=== PATIENT | female | born 1975 | race Caucasian/White ===

== ENCOUNTER 2019-09-09 10:50 | Outpatient (CLI) | payer MEDICARE, MEDICAID, SELFPAY ==
--- NOTE | ~2019-09-09 | MMUS_ITS ---
CORRECTED REPORT SEE ITALIC/BOLD TEXT BELOW FOR CORRECTED EXAM. 09/10/19 sef EXAMINATION: MM screen LT diag RT w bobby, US breast RT limited HISTORY: Probable right axillary abnormality TECHNIQUE: Additional 3-D tomosynthesis images of the breasts were performed and synthetic 2-D images were generated. CAD analysis was submitted and interpreted. High resolution right breast ultrasound was performed. COMPARISON: Comparison to multiple prior studies sequentially, with oldest reviewed study dated 04/30/2014. FINDINGS: MAMMOGRAPHIC FINDINGS: Breast composed of scattered areas of fibroglandular density. There is clustered normal-appearing right axillary lymph nodes in the area of palpable concern. No suspicious masses, calcifications or architectural distortion in either breast to suggest malignancy. ULTRASOUND: Limited right breast ultrasound: Normal heterogeneous echotexture without focal solid or cystic mass. IMPRESSION: 1. No mammographic or sonographic evidence for malignancy. 2. Routine yearly screening mammogram and regular clinical breast examination are recommended. BI-RADS Category 2: Benign finding(s). Reviewed, dictated and finalized at location [facility]. MTDD IMPRESSION: 1. No mammographic or sonographic evidence for malignancy. 2. Routine yearly screening mammogram and regular clinical breast examination a re recommended. BI-RADS Category 2: Benign finding(s).
== END 2019-09-09 10:51 | disposition home or self-care (01) ==
PROVIDERS: Visit Provider Obstetrics & Gynecology
DX: N63.11 Unspecified lump in the right breast, upper outer quadrant (principal); Z12.31 Encounter for screening mammogram for malignant neoplasm of breast
CPT/HCPCS: 76642; 77061; 77063; 77065; 77067; G0279

== ENCOUNTER 2019-09-29 07:18 | Outpatient (CLI) | payer MEDICARE, MEDICAID, SELFPAY | END 2019-09-29 07:19 | disposition home or self-care (01) | LOC: ANHAUDIO 07:28 | DX: H90.3 Sensorineural hearing loss, bilateral (principal) | CPT/HCPCS: 92557; 92567 ==

== ENCOUNTER 2020-01-19 14:44 | Outpatient (RCR) | payer MEDICAID, SELFPAY | END 2020-01-19 23:59 | disposition home or self-care (01) | LOC: ANHAUDIO 14:44 | DX: Z46.1 Encounter for fitting and adjustment of hearing aid (principal) | CPT/HCPCS: 92593 ==

== ENCOUNTER 2020-02-17 13:45 | Emergency (ER) | payer MEDICARE, MEDICAID, SELFPAY ==
--- NOTE | ~2020-02-17 | XR_ITS ---
EXAMINATION: XR chest 1V portable DATE: 02/17/2020 15:15 INDICATION: Cough. Pelvic pain. TECHNIQUE: A single frontal view of the chest was obtained. COMPARISON: Chest 2 views 08/10/2015 FINDINGS: There are mild airspace opacities in the lower lung zones. There is blunting of left latera l costophrenic angle. No pneumothorax. The heart size is normal. IMPRESSION: 1. Mild airspace opacities in the lower lung zones, consistent with atelectasis versus pneumonia. 2. Blunting of left lateral costophrenic angle, consistent with a small pleural effusion versus a pro minent fat pad. Reviewed, dictated and finalized at location [facility]. CH PATHOLOGY ASSISTANT IMPRESSION: 1. Mild airspace opacities in the lower lung zones, consistent with atelectasis versus pneumonia. 2. Blunting of left lateral costophrenic angle, consistent with a small pleural effusion versus a prominent fat pad.
[2020-02-17 14:01] VITALS: BP 138/95; PULSE 83; RESP 16; TEMP 36.3; O2SAT 99
[2020-02-17 15:36] LABS: Add Urine Microscopic? NO; Appearance Urine Clear (Clear); Bilirubin Urine Negative (Negative); Blood Urine Negative (Negative); Color Urine Colorless (Yellow); Glucose Urine UA Negative (Negative); Ketones Urine Negative (Negative); Leukocyte Esterase Ur Negative LEU/UL (Negative); Nitrate Urine Negative (Negative); Protein Urine Negative (Negative); Specific Grav Ur 1.005 (1.001-1.035); Urobilinogen Urine Negative mg/dL (<2.0)
[2020-02-17] MEDS: ALPRAZolam (*CRX) 0.25 MG TABLET 0.5 MG PO (17:04)
[2020-02-17] MEDS: FLUCONAZOLE 150 MG TABLET PO (17:04)
[2020-02-17 17:28] VITALS: BP 140/88; PULSE 80; RESP 16; O2SAT 98
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
[2020-02-17 23:33] LABS: SARS-CoV-2 RNA PCR Negative
== END 2020-02-17 18:32 | disposition home or self-care (01) ==
PROVIDERS: Physician Assistant; Emergency Provider Emergency Medicine
DX: N94.89 Other specified conditions associated with female genital organs and menstrual cycle (principal); Z20.828 Contact with and (suspected) exposure to other viral communicable diseases; F43.10 Post-traumatic stress disorder, unspecified; Z91.410 Personal history of adult physical and sexual abuse; E03.9 Hypothyroidism, unspecified; R10.2 Pelvic and perineal pain
CPT/HCPCS: 71045; 81003; 87070; 87081; 87635; 87804; 87880; 99284; A9270; C9803; U0003

== ENCOUNTER 2020-03-01 12:02 | Outpatient (CLI) | payer MEDICARE, MEDICAID, SELFPAY ==
--- NOTE | ~2020-03-01 | XR_ITS ---
XR sacrum coccyx min 2V 03/01/2020 13:06 Indication: Overactive bladder Procedure: 3 views sacrum/coccyx Comparison: No prior studies for comparison. Findings: There is a stimulator lead extending into the pelvis via left transsacral approach. There a re radiopaque rings in the pelvis, likely tubal ligation rings. Sacral foramen are symmetric. No acut e bone or joint abnormality. Impression: 1: Neural stimulator lead extends into the pelvis via left transsacral approach. Reviewed, dictated and finalized at location [facility]. TICS DESIGN ENGINEER Impression: 1: Neural stimulator lead extends into the pelvis via left transsacral approach .
== END 2020-03-01 12:03 | disposition home or self-care (01) ==
PROVIDERS: Visit Provider Urology
DX: N32.81 Overactive bladder (principal); Z96.82 Presence of neurostimulator
CPT/HCPCS: 72220

== ENCOUNTER 2020-03-25 09:42 | Emergency (ER) | payer MEDICARE, MEDICAID, SELFPAY ==
[2020-03-25 09:52] VITALS: BP 179/114; PULSE 68; RESP 16; TEMP 36.7; O2SAT 100
--- NOTE | 2020-03-25 11:19 | ED.ABDPAIN ---
HPI - Abdominal Pain General Chief Complaint: Abdominal Pain Stated Complaint: gastro problems Time Seen by Provider: 03/25/20 09:49 Source: patient Mode of arrival: ambulatory Limitations: no limitations History of Present Illness HPI narrative: Patient is a 44-year-old female who presents to emergency department for evaluation of multiple complaints including chronic rash is also been having chronic GI issues which have been persistent patient has difficulty getting into primary care because she has been having cough for weeks as well as noting intermittent diarrhea which is prevented the staff from allowing her to come to the office for a visit. Patient notes mild aching pain of the abdomen with intermittent diarrhea. Patient on arrival also noting that her cough is chronic in nature is not coughing anything up. Patient denies any vomiting rectal bleeding melena. Patient notes rash of the groin and breast for which she has been taking nystatin with some improvement but it waxes and wanes sometimes it gets better and then improves. Patient has had trouble getting the dermatology for this and has been largely managed by primary care for this Related Data Home Medications Medication Instructions Recorded Confirmed N-Acetylcysteine 1,200 mg PO DAILY 01/30/19 04/04/19 acetaminophen [Tylenol Extra 500 mg PO Q4H PRN 01/30/19 04/04/19 Strength] baclofen 10 mg PO Q12H 01/30/19 04/04/19 buspirone 10 mg PO TID 01/30/19 04/04/19 clonazepam 5 mg PO BID 01/30/19 04/04/19 hydroxyzine pamoate [Vistaril] 50 mg PO TID 01/30/19 04/04/19 hydroxyzine pamoate [Vistaril] 100 mg PO HS 01/30/19 04/04/19 ibuprofen 600 mg PO Q6H PRN 01/30/19 04/04/19 lamotrigine [Lamictal] 100 mg PO HS 01/30/19 04/04/19 levomefolate-algal oil [Deplin 1 cap PO DAILY 01/30/19 04/04/19 (algal oil)] lithium carbonate 450 mg PO Q12H 01/30/19 04/04/19 norethindrone ac-eth estradiol 1 tablet PO HS 01/30/19 04/04/19 olanzapine 5 mg PO TID 01/30/19 04/04/19 prazosin 2 mg PO DAILY 01/30/19 04/04/19 pregabalin [Lyrica] 150 mg PO Q12H 01/30/19 04/04/19 ropinirole [Requip] 0.5 mg PO Q12H 01/30/19 04/04/19 fluvoxamine 25 mg PO BID 03/18/19 04/04/19 melatonin 3 mg PO HS 03/18/19 04/04/19 modafinil [Provigil] 100 mg PO QA 03/18/19 04/04/19 omeprazole 40 mg PO DAILY 03/18/19 04/04/19 prazosin 5 mg PO HS 03/18/19 04/04/19 propranolol 10 mg PO TID 03/18/19 04/04/19 quetiapine [Seroquel] 300 mg PO HS 03/18/19 04/04/19 Allergies Allergy/AdvReac Type Severity Reaction Status Date / Time albuterol Allergy Mild Swelling Verified 01/26/20 10:25 levofloxacin Allergy Mild RASH Verified 01/26/20 10:25 adhesive Allergy Unknown Rash Verified 01/26/20 10:25 cetirizine Allergy Unknown Rash Verified 01/26/20 10:25 gabapentin Allergy Unknown Swelling Verified 01/26/20 10:25 lactose Allergy Unknown Gastrointestinal Verified 01/26/20 10:25 Upset latex Allergy Unknown ITCHING-POWDER Verified 01/26/20 10:25 IN GLOVES prednisone AdvReac Unknown mood Verified 01/26/20 10:25 reaction Sulfa (Sulfonamide AdvReac Unknown CAUSED Verified 01/26/20 10:25 Antibiotics) INCREASED PAIN Review of Systems Review of Systems: All systems reviewed & are unremarkable except as noted in HPI and below PMFSH Past Medical History Medical History COPD (chronic obstructive pulmonary disease) GERD (gastroesophageal reflux disease) Hypothyroid Migraine Morbid obesity Family History Family History Other Diabetes mellitus Family history of arthritis Family history of cardiovascular disease Family history of coronary artery disease Family history of lung cancer Social History Social History Smoking status: Former smoker Smoking end date: 01/01/15 Alcohol intake: never Exam Narrative: Exam Narrative: GE
== END 2020-03-25 11:38 | disposition home or self-care (01) ==
PROVIDERS: Emergency Provider Emergency Medicine
DX: R21 Rash and other nonspecific skin eruption (principal); R10.9 Unspecified abdominal pain; J44.9 Chronic obstructive pulmonary disease, unspecified; K21.9 Gastro-esophageal reflux disease without esophagitis; E03.9 Hypothyroidism, unspecified; E66.01 Morbid (severe) obesity due to excess calories; Z68.42 Body mass index [BMI] 45.0-49.9, adult; Z87.891 Personal history of nicotine dependence
CPT/HCPCS: 99283

== ENCOUNTER 2020-04-04 11:33 | Emergency (ER) | payer MEDICARE, MEDICAID, SELFPAY ==
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
[2020-04-04 11:52] VITALS: BP 154/100; PULSE 71; RESP 18; TEMP 36.6; O2SAT 100
== END 2020-04-04 12:15 | disposition home or self-care (01) ==
PROVIDERS: Emergency Provider Nurse Practitioner
DX: R39.15 Urgency of urination (principal); R30.0 Dysuria; R10.9 Unspecified abdominal pain; R31.9 Hematuria, unspecified; E03.9 Hypothyroidism, unspecified
CPT/HCPCS: 81003; 87077; 87086; 87088; 87186; 99213; G0463

== ENCOUNTER 2020-04-05 15:26 | Emergency (ER) | payer MEDICARE, MEDICAID, SELFPAY ==
--- NOTE | ~2020-04-05 | CT_ITS ---
EXAMINATION: CT abdomen pelvis wo con DATE: 04/05/2020 16:46 INDICATION: Flank pain. Difficulty urinating for 3 days. TECHNIQUE: Computed tomography (CT) of the abdomen and pelvis was performed without intravenous contr ast. Automated exposure control and iterative reconstruction technique were employed. Exam dose: 120 5.51 mGy-cm total exam DLP. COMPARISON: 07/12/2012 CT abdomen with IV contrast material FINDINGS: There is trace pericardial fluid. Heart size is within normal limits. The lung bases are cl ear of consolidation. Status post cholecystectomy. No bile duct or pancreatic duct dilatation. Probable small hepatic dome liver cyst. The liver, spleen, pancreas, and adrenal glands and kidneys a re otherwise unremarkable on this limited noncontrast examination. Normal caliber of the abdominal aorta, with atherosclerotic calcification of the aorta and iliac and right femoral arteries. No intraperitoneal or retroperitoneal or pelvic mass lesion or adenopathy or ascites. No ureteral or other urinary tract calculus or hydroureteronephrosis is detected. There is prominent distention of the urinary bladder. No bladder wall thickening or intraluminal blad adan mass lesion is noted. The uterus and adnexal areas are unremarkable. Small sliding hiatal hernia. Normal appendix. No bowel obstruction, bowel wall thickening, pneumatosi s or intraperitoneal free air. There is an implanted right lower back battery pack with lead extending through left L3-4 sacral neur al foramen. No suspicious osteolytic or osteoblastic lesions. Prominent degenerative disc disease at L1-2. IMPRESSION: No urinary tract calculus or hydroureteronephrosis Small hepatic dome probable cyst Status post cholecystectomy Small sliding hiatal hernia Reviewed, dictated and finalized at [facility]. Reviewed, dictated and finalized at location [facility]. RHANGER AND PAINTER
[2020-04-05 15:36] VITALS: BP 173/87; PULSE 71; RESP 16; TEMP 36.4; O2SAT 100
[2020-04-05 16:02] LABS: Basophils Percent Auto 0.5 % (0.2-1.2); Eosinophils Absolute Auto 0.2 K/mm3 (0-0.3); Eosinophils Percent Auto 2.3 % (0-4.4); Hematocrit 41.4 % (37.0-47.0); Immature Granulocyte Absolute 0.03 K/mm3 (0.00-0.031); Immature Granulocyte Percent A 0.4 % (0-0.5); Lymphocytes Absolute Auto 2.46 K/mm3 (0.9-3.2); Lymphocytes Percent Auto 31.1 % (18.3-44.2); Mean Corpuscular HGB Conc 33.8 g/dl (32-36); Mean Corpuscular Hemoglobin 31.2 pg (26-34); Mean Corpuscular Volume 92.2 fl (80-100); Mean Platelet Volume 10.8 fl (7.4-10.4); Monocytes Absolute Auto 0.8 K/mm3 (0.1-0.6); Monocytes Percent Auto 10.4 % (2.6-8.5); Neutrophils Absolute Auto 4.4 K/mm3 (1.3-6.7); Neutrophils Percent Auto 55.3 % (45.5-73.1); Platelet Count Result 299 k/mm3 (150-375); Red Blood Count 4.49 M/mm3 (4.2-5.4); White Blood Count 7.9 K/mm3 (4.5-10.0)
[2020-04-05 16:20] LABS: Anion Gap 7 mmol/L (8-16); Blood Urea Nitrogen 8 mg/dL (7-17); Calcium 8.5 mg/dL (8.4-10.2); Carbon Dioxide 25 mmol/L (22-30); Chloride 97 mmol/L (98-107); Estimated CRCL calculation 103 ml/min; Estimated Glomerular Filt Rate > 60; Glucose 87 mg/dL (65-105); Potassium 4.4 mmol/L (3.4-5.0); Sodium 129 mmol/L (137-145)
[2020-04-05] MEDS: SODIUM CHLORIDE 0.9% IV 1,000 ML 999 ML IV CONT (16:28)
--- NOTE | 2020-04-05 16:35 | ED.CHESTPAIN ---
HPI - Chest Pain General Chief Complaint: Urogenital-Female Stated Complaint: UTI, LOW BACK PAIN Time Seen by Provider: 04/05/20 15:30 Source: patient Mode of arrival: ambulatory Limitations: no limitations History of Present Illness HPI narrative: Patient is a 44-year-old female who presents with abdominal pain and back pain after straight cathing herself yesterday saw urology today came to emergency department for further evaluation of her discomfort. Patient noted some hematuria after self cathing herself patient has been instructed to do so by urology per patient. Patient denies fever chills nausea vomiting diarrhea or other complaints presents in no distress Related Data Home Medications Medication Instructions Recorded Confirmed N-Acetylcysteine 1,200 mg PO DAILY 01/30/19 04/04/19 acetaminophen [Tylenol Extra 500 mg PO Q4H PRN 01/30/19 04/04/19 Strength] baclofen 10 mg PO Q12H 01/30/19 04/04/19 buspirone 10 mg PO TID 01/30/19 04/04/19 clonazepam 5 mg PO BID 01/30/19 04/04/19 hydroxyzine pamoate [Vistaril] 50 mg PO TID 01/30/19 04/04/19 hydroxyzine pamoate [Vistaril] 100 mg PO HS 01/30/19 04/04/19 ibuprofen 600 mg PO Q6H PRN 01/30/19 04/04/19 lamotrigine [Lamictal] 100 mg PO HS 01/30/19 04/04/19 levomefolate-algal oil [Deplin 1 cap PO DAILY 01/30/19 04/04/19 (algal oil)] lithium carbonate 450 mg PO Q12H 01/30/19 04/04/19 norethindrone ac-eth estradiol 1 tablet PO HS 01/30/19 04/04/19 olanzapine 5 mg PO TID 01/30/19 04/04/19 prazosin 2 mg PO DAILY 01/30/19 04/04/19 pregabalin [Lyrica] 150 mg PO Q12H 01/30/19 04/04/19 ropinirole [Requip] 0.5 mg PO Q12H 01/30/19 04/04/19 fluvoxamine 25 mg PO BID 03/18/19 04/04/19 melatonin 3 mg PO HS 03/18/19 04/04/19 modafinil [Provigil] 100 mg PO QAM 03/18/19 04/04/19 omeprazole 40 mg PO DAILY 03/18/19 04/04/19 prazosin 5 mg PO HS 03/18/19 04/04/19 propranolol 10 mg PO TID 03/18/19 04/04/19 quetiapine [Seroquel] 300 mg PO HS 03/18/19 04/04/19 Allergies Allergy/AdvReac Type Severity Reaction Status Date / Time albuterol Allergy Mild Swelling Verified 04/05/20 15:40 levofloxacin Allergy Mild RASH Verified 04/05/20 15:40 adhesive Allergy Unknown Rash Verified 04/05/20 15:40 cetirizine Allergy Unknown Rash Verified 04/05/20 15:40 gabapentin Allergy Unknown Swelling Verified 04/05/20 15:40 lactose Allergy Unknown Gastrointestinal Verified 04/05/20 15:40 Upset latex Allergy Unknown ITCHING-POWDER Verified 04/05/20 15:40 IN GLOVES prednisone AdvReac Unknown mood Verified 04/05/20 15:40 reaction Sulfa (Sulfonamide AdvReac Unknown CAUSED Verified 04/05/20 15:40 Antibiotics) INCREASED PAIN Review of Systems Review of Systems: All systems reviewed & are unremarkable except as noted in HPI and below PMFSH Past Medical History Medical History COPD (chronic obstructive pulmonary disease) GERD (gastroesophageal reflux disease) Hypothyroid Migraine Morbid obesity Family History Family History Other Diabetes mellitus Family history of arthritis Family history of cardiovascular disease Family history of coronary artery disease Family history of lung cancer Social History Social History Smoking status: Former smoker Smoking end date: 03/12/14 Alcohol intake: never Gender identity (if verbalized by the patient): Female Exam Narrative: Exam Narrative: GENERAL: Well-appearing, obese, and in no acute distress. HEAD: Normocephalic, atraumatic. EYES: PERRLA and EOMI. ENT: Nares clear, no rhinorrhea or epistaxis. Mucous membranes moist. CHEST: Clear to auscultation. No respiratory distress. No wheezes rales or rhonchi HEART: Regular rate and rhythm. No murmur heard. Normal peripheral pulses. ABDOMEN: Soft, generalized tenderness of the abdomen, nondistended EXTREMITIES: Norm
[2020-04-05 16:57] VITALS: BP 168/84; PULSE 88; RESP 18; O2SAT 96
[2020-04-05 17:49] LABS: Add Urine Microscopic? NO; Appearance Urine Clear (Clear); Bilirubin Urine Negative (Negative); Blood Urine Negative (Negative); Color Urine Yellow (Yellow); Glucose Urine UA Negative (Negative); Ketones Urine Negative (Negative); Leukocyte Esterase Ur Negative LEU/UL (Negative); Nitrate Urine Negative (Negative); Protein Urine Negative (Negative); Urobilinogen Urine Negative mg/dL (<2.0)
[2020-04-05 17:50] LABS: Specific Grav Ur 1.003 (1.001-1.035)
[2020-04-05 18:16] VITALS: BP 134/79; PULSE 74; RESP 16; O2SAT 100
== END 2020-04-05 18:17 | disposition home or self-care (01) ==
PROVIDERS: Emergency Medicine Emergency Medical Services; Emergency Provider Emergency Medicine
DX: R10.9 Unspecified abdominal pain (principal); J44.9 Chronic obstructive pulmonary disease, unspecified; K21.9 Gastro-esophageal reflux disease without esophagitis; E03.9 Hypothyroidism, unspecified; E66.01 Morbid (severe) obesity due to excess calories; Z68.41 Body mass index [BMI] 40.0-44.9, adult; Z87.891 Personal history of nicotine dependence; K44.9 Diaphragmatic hernia without obstruction or gangrene
CPT/HCPCS: 36415; 74176; 80048; 81003; 85025; 96374; 96375; 99284; J0131; J0696; J7030

== ENCOUNTER → 2020-04-20 03:42 | Outpatient (CLI) | payer MEDICARE, MEDICAID, SELFPAY ==
[2020-04-21 18:18] LABS: SARS-CoV-2 RNA PCR Negative
== END ==
PROVIDERS: Visit Provider Urology
DX: Z01.812 Encounter for preprocedural laboratory examination (principal); Z20.822 Contact with and (suspected) exposure to COVID-19
CPT/HCPCS: C9803; U0003; U0005

== ENCOUNTER 2020-04-20 10:20 | Outpatient (CLI) | payer MEDICARE, MEDICAID, SELFPAY ==
--- NOTE | 2020-04-20 10:23 | ECG_ITS ---
Measurements Intervals [place] Rate: 62 P: 124 NC: 188 QRS: 44 QRSD: 84 T: 22 QT: 394 QTc: 402 Interpretive Statements SINUS RHYTHM LOW QRS VOLTAGE IN PRECORDIAL LEADS BASELINE ARTIFACT- II, III, AVR, AVF BORDERLINE ECG Electronically Signed On 04-20-2020 10:54:10 [employer]AYER by Jean Paul Arguelles D.O.
== END 2020-04-20 10:21 | disposition home or self-care (01) ==
LOC: ANHSURGERY 10:23
PROVIDERS: Visit Provider Urology
DX: Z01.818 Encounter for other preprocedural examination (principal); Z87.891 Personal history of nicotine dependence
CPT/HCPCS: 93005; C9803; U0003; U0005

== ENCOUNTER 2020-04-23 00:43 | Day surgery (SDC) | payer MEDICARE, MEDICAID, SELFPAY ==
--- NOTE | 2020-04-18 10:00 | PM.IMHP ---
H&P: HPI History of Present Illness Date/Time: 04/18/20 10:00 Chief Complaint: OAB Narrative: Brittney Mercado is a 44 year old female with OAB and displaced sacral lead Review of Systems Review of Systems: All systems reviewed & are unremarkable except as noted in HPI and below PMFSH Past Medical History Medical History COPD (chronic obstructive pulmonary disease) GERD (gastroesophageal reflux disease) Hypothyroid Migraine Morbid obesity Family History Family History Other Diabetes mellitus Family history of arthritis Family history of cardiovascular disease Family history of coronary artery disease Family history of lung cancer Social History Social History Smoking status: Former smoker Smoking end date: 03/12/14 Alcohol intake: never Gender identity (if verbalized by the patient): Female Meds Home Medications and Allergies Home Medications Medication Instructions Recorded Confirmed Type N-Acetylcysteine 1,200 mg PO DAILY 01/30/19 04/04/19 History acetaminophen [Tylenol Extra 500 mg PO Q4H PRN 01/30/19 04/04/19 History Strength] baclofen 10 mg PO Q12H 01/30/19 04/04/19 History buspirone 10 mg PO TID 01/30/19 04/04/19 History clonazepam 5 mg PO BID 01/30/19 04/04/19 History hydroxyzine pamoate [Vistaril] 50 mg PO TID 01/30/19 04/04/19 History hydroxyzine pamoate [Vistaril] 100 mg PO HS 01/30/19 04/04/19 History ibuprofen 600 mg PO Q6H PRN 01/30/19 04/04/19 History lamotrigine [Lamictal] 100 mg PO HS 01/30/19 04/04/19 History levomefolate-algal oil [Deplin 1 cap PO DAILY 01/30/19 04/04/19 History (algal oil)] lithium carbonate 450 mg PO Q12H 01/30/19 04/04/19 History norethindrone ac-eth estradiol 1 tablet PO HS 01/30/19 04/04/19 History olanzapine 5 mg PO TID 01/30/19 04/04/19 History prazosin 2 mg PO DAILY 01/30/19 04/04/19 History pregabalin [Lyrica] 150 mg PO Q12H 01/30/19 04/04/19 History ropinirole [Requip] 0.5 mg PO Q12H 01/30/19 04/04/19 History fluvoxamine 25 mg PO BID 03/18/19 04/04/19 History melatonin 3 mg PO HS 03/18/19 04/04/19 History modafinil [Provigil] 100 mg PO QAM 03/18/19 04/04/19 History omeprazole 40 mg PO DAILY 03/18/19 04/04/19 History prazosin 5 mg PO HS 03/18/19 04/04/19 History propranolol 10 mg PO TID 03/18/19 04/04/19 History quetiapine [Seroquel] 300 mg PO HS 03/18/19 04/04/19 History hydrocodone-acetaminophen [[place]] 1 tablet PO Q4H PRN #30 tablet 04/04/19 Rx levothyroxine 100 mcg tablet 100 mcg PO DAILY #30 tablet 04/29/19 Rx famotidine [Pepcid] 20 mg PO BID #14 tablet 03/25/20 Rx hyoscyamine sulfate [Levsin] 0.125 mg PO QID #7 tablet 03/25/20 Rx ondansetron 4 mg PO Q6H PRN #7 tablet 03/25/20 Rx phenazopyridine [Pyridium] 200 mg PO TID PRN #6 tablet 04/05/20 Rx Allergies Allergy/AdvReac Type Severity Reaction Status Date / Time albuterol Allergy Mild Swelling Verified 04/05/20 15:40 levofloxacin Allergy Mild RASH Verified 04/05/20 15:40 adhesive Allergy Unknown Rash Verified 04/05/20 15:40 cetirizine Allergy Unknown Rash Verified 04/05/20 15:40 gabapentin Allergy Unknown Swelling Verified 04/05/20 15:40 lactose Allergy Unknown Gastrointestinal Verified 04/05/20 15:40 Upset latex Allergy Unknown ITCHING-POWDER Verified 04/05/20 15:40 IN GLOVES prednisone AdvReac Unknown mood Verified 04/05/20 15:40 reaction Sulfa (Sulfonamide AdvReac Unknown CAUSED Verified 04/05/20 15:40 Antibiotics) INCREASED PAIN Exam Const: General: cooperative and healthy appearing HENMT: Head: abnormal to inspection Eyes: General: appearance normal, both eyes and all related structures Chest: Chest palpation & inspection: normal inspection of the chest Resp: Effort & Inspection: normal respiratory effort and able to speak in complete sentences Skin: General skin exam: n
[2020-04-19 12:10] VITALS: BMI 47.5
--- NOTE | ~2020-04-23 | XR_ITS ---
EXAMINATION: FLUORO NEUROSTIM INSERT < 1HR DATE: 04/23/2020 08:06 INDICATION: Interstim phase I TECHNIQUE: Frontal and lateral fluoroscopic images of the sacrum were obtained. The amount of fluoros copy time used during this procedure was 0.8 minutes. COMPARISON: None. FINDINGS: Distal tip of an Interstim lead extends from posterior to anterior through the left S3 neur al foramen. On the lateral projection lap sponge with markers is balled up in a lucent soft tissue po cket more posteriorly at the buttock, indeterminate whether left or right-sided. IMPRESSION: 1. Interstim lead extends through the right S3 neural foramen. See procedure note for further detail . Reviewed, dictated and finalized at location A. S ANALYTICAL LEAD IMPRESSION: 1. Interstim lead extends through the right S3 neural foramen. See procedure n ote for further detail.
[2020-04-23 06:06] VITALS: BP 114/73; PULSE 70; RESP 16; TEMP 36.2; O2SAT 100
--- NOTE | 2020-04-23 06:59 | WPDANESEPPF ---
Anes - Initial Pre Proc Eval Procedure: Operation Date: 04/23/20 07:30 Proposed Procedures p Removal And Replacement of Interstim - Fausto Belcher MD Date/Time: 04/23/20 06:59 Surgeon: Fausto Belcher MD Pre Op Diagnosis: Over active bladder, stress incont. Patient Data Age: 44 Gender: F Height: 1.66 m Weight: 125.5 kg Last Vital Signs Temp 36.2 C L 04/23/20 06:06 Pulse 70 04/23/20 06:06 Resp 16 04/23/20 06:06 BP 114/73 04/23/20 06:06 Pulse Ox 100 04/23/20 06:06 Allergies Allergy/AdvReac Type Severity Reaction Status Date / Time albuterol Allergy Mild Swelling Verified 04/23/20 06:45 levofloxacin Allergy Mild RASH Verified 04/23/20 06:45 adhesive Allergy Unknown Rash Verified 04/23/20 06:45 cetirizine Allergy Unknown Rash Verified 04/23/20 06:45 gabapentin Allergy Unknown Swelling Verified 04/23/20 06:45 lactose Allergy Unknown Gastrointestinal Verified 04/23/20 06:45 Upset latex Allergy Unknown ITCHING-POWDER Verified 04/23/20 06:45 IN GLOVES prednisone AdvReac Severe mood Verified 04/23/20 06:45 reaction fexofenadine AdvReac Unknown Gastrointestinal Verified 04/23/20 06:45 Upset Sulfa (Sulfonamide AdvReac Unknown CAUSED Verified 04/23/20 06:45 Antibiotics) INCREASED PAIN tizanidine AdvReac Unknown Hallucinati Verified 04/23/20 06:45 ng Home Medications Medication Instructions Recorded Confirmed Type acetaminophen [Tylenol Extra 500 mg PO Q4H PRN 01/30/19 04/23/20 History Strength] buspirone 20 mg PO TID 01/30/19 04/23/20 History hydroxyzine pamoate [Vistaril] 25 mg PO PRN PRN 01/30/19 04/23/20 History ibuprofen 600 mg PO Q6H PRN 01/30/19 04/23/20 History lamotrigine [Lamictal] 100 mg PO BID 01/30/19 04/23/20 History norethindrone ac-eth estradiol 1 tablet PO HS 01/30/19 04/23/20 History fluvoxamine 50 mg PO BID 03/18/19 04/23/20 History melatonin 5 mg PO HS 03/18/19 04/23/20 History omeprazole 40 mg PO DAILY 03/18/19 04/23/20 History prazosin 1 mg PO HS 03/18/19 04/23/20 History propranolol 30 mg PO TID 03/18/19 04/23/20 History levothyroxine 100 mcg tablet 100 mcg PO DAILY #30 tablet 04/29/19 04/23/20 Rx cholecalciferol (vitamin D3) 25 mcg PO DAILY 04/19/20 04/23/20 History diphenhydramine HCl [Benadryl] 25 mg PO HS 04/19/20 04/23/20 History glycopyrrolate-formoterol [Bevespi 2 puff INHALATION BID 04/19/20 04/23/20 History Aerosphere] lactobacillus comb no.10 20,000 mmu cells PO DAILY 04/19/20 04/23/20 History [Probiotic] levalbuterol tartrate [Xopenex HFA] 2 puff INHALATION PRN PRN 04/19/20 04/23/20 History levomefolate calcium 7.5 mg PO HS 04/19/20 04/23/20 History [L-Methylfolate] montelukast 10 mg PO HS 04/19/20 04/23/20 History sumatriptan succinate 100 mg PO PRN PRN 04/19/20 04/23/20 History Patient hx anesthesia problems: none Family hx anesthesia problems: none PMFSH Past Medical History Medical History COPD (chronic obstructive pulmonary disease) GERD (gastroesophageal reflux disease) Hypothyroid Migraine Morbid obesity Family History Family History Other Diabetes mellitus Family history of arthritis Family history of cardiovascular disease Family history of coronary artery disease Family history of lung cancer Social History Social History Smoking packs per day: 3 Smoking cigarettes per day: 60.0 Years smoked: 20 Smoking pack-years: 60.00 Smoking status: Former smoker Tobacco type: cigarettes Smoking end date: 03/12/14 Alcohol intake: never Living arrangements: alone Gender identity (if verbalized by the patient): Female Spiritual care concerns: No Anes - Eval Final PreProcedure Day of Procedure 04/23/20 06:59 Patient weight: morbidly obese Heart: regular rate and rhythm Lungs: clear to auscultatio
[2020-04-23] MEDS: LACTATED RINGERS 1,000 ML 30 ML IV CONT (07:03)
--- NOTE | 2020-04-23 07:17 | WPDHPUPDATE1 ---
History and Physical Update Update Date/Time: 04/23/20 07:17 History and Physical has been reviewed, including an updated exam of the patient. There are NO changes in the patient's condition. Risks, benefits, and alternatives have been discussed and questions answered. Patient agrees to proceed with procedure.
[2020-04-23] MEDS: ceFAZolin 3 GM/D5W 100 ML 100 ML IVPB (07:32)
[2020-04-23] MEDS: BUPIVACAINE/EPINEPHRINE 0.25% 50 ML VIAL INFILTRATE (07:50)
[2020-04-23 08:23] VITALS: BP 146/83; PULSE 81; RESP 14; O2SAT 100
--- NOTE | 2020-04-23 08:38 | PM.PROC ---
Procedure Note - Detailed Date of procedure: 04/23/20 Pre-op diagnosis: Over active bladder, stress incont. Procedure performed: Removal of sacral lead Placement of sacral Fluoroscopic guidance for needle placement Placement of implantable pulse generator Complex neurostimulator programming and impedance check Description of procedure: Anesthesia: Mac local This patient has a InterStim device in place. The lead has been pulled back and is out of place. She is here today for a full revision. Understanding the risks of bleeding, infection, lack of efficacy, need for repeat procedures, need for revision. They agree to proceed She was correctly identified and informed consent was obtained. There brought to the operating room. Placed in the prone position. There given appropriate anesthesia. There prepped and draped in a sterile fashion. A time-out performed. I anesthetized the skin over the pulse generator. I and incised the skin. I located the pulse generator and removed it. I used fluoroscopy to identify my sacral landmarks in the AP and lateral orientation. I visualized the old lead as well. I anesthetized the skin over the old lead.. I dissected down to the fatty tissues. I located the previously placed lead. I removed in its entirety. I then turned my attention towards placing the new lead. I used the foramen needle to enter the sacral foramen on the left. I monitored the needle with fluoroscopy. I entered right and left S3 foramen. I stimulated the needle and got appropriate response at low thresholds. I made a skin joy. I placed a stylet and the lead introducer sheath. I then placed and deployed by lead again under fluoroscopy. I then tunneled the lead towards this pocket. Appropriate connections were made between the lead and battery. The battery was programmed. It was placed in the pocket. Impedances were checked and found to be normal. I once again assured hemostasis. I irrigated out all wounds. I closed the subcu with 2 0 Vicryl. Skin with 4 0 Vicryl. Glue was applied. They were then awakened and transferred to the PACU in stable condition. Implants: Neuromodulation device Anesthesia: MAC and local Surgeon: Fausto Belcher MD Drains: No Packing: No Pathology: none sent Complications: No immediate complications Condition: stable Disposition: PACU
[2020-04-23 08:53] VITALS: BP 131/82; PULSE 78; RESP 14
[2020-04-23] MEDS: oxyCODONE HCL (*CRX) 5 MG TAB IR PO (09:04)
[2020-04-23 09:23] VITALS: BP 151/71; PULSE 82; RESP 14
--- NOTE | 2020-04-23 10:18 | SUR.PHASEII ---
MARLEN ROSE TALKED WITH PT BEFORE DC. ALL QUESTIONS WERE ANSWERED AT THIS TIME.
== END 2020-04-23 09:45 | disposition home or self-care (01) ==
PROVIDERS: Visit Provider Urology
PROC: (CPT 64585; principal; 2020-04-23 07:30)
DX: T85.121A Displacement of implanted electronic neurostimulator of peripheral nerve electrode (lead), initial encounter (principal); N32.81 Overactive bladder; N39.3 Stress incontinence (female) (male); Y83.8 Other surgical procedures as the cause of abnormal reaction of the patient, or of later complication, without mention of misadventure at the time of the procedure; E03.9 Hypothyroidism, unspecified; J44.9 Chronic obstructive pulmonary disease, unspecified; K21.9 Gastro-esophageal reflux disease without esophagitis; E66.01 Morbid (severe) obesity due to excess calories; Z68.42 Body mass index [BMI] 45.0-49.9, adult; Z87.891 Personal history of nicotine dependence
CPT/HCPCS: 64585; 64595; A9270; C1767; C1778; C1787; J0690; J1885; J2250; J2405; J2704; J3010; J7120

== ENCOUNTER 2020-11-25 09:33 | Outpatient (CLI) | payer MEDICARE, MEDICAID, SELFPAY | END 2020-11-25 09:34 | disposition home or self-care (01) | LOC: ANHAUDIO 09:35 | DX: H90.42 Sensorineural hearing loss, unilateral, left ear, with unrestricted hearing on the contralateral side (principal); H90.71 Mixed conductive and sensorineural hearing loss, unilateral, right ear, with unrestricted hearing on the contralateral side | CPT/HCPCS: 92557; 92567 ==

== ENCOUNTER 2022-05-10 12:56 | Outpatient (CLI) | payer MEDICARE, MEDICAID, SELFPAY ==
--- NOTE | 2022-05-10 13:14 | ECG_ITS ---
Measurements Intervals [place] Rate: 65 P: 17 VT: 152 QRS: 46 QRSD: 82 T: 44 QT: 392 QTc: 409 Interpretive Statements SINUS RHYTHM LOW QRS VOLTAGE IN PRECORDIAL LEADS BASELINE ARTIFACT- I, II, III, AVR, AVL, AVF BORDERLINE ECG COMPARED TO ECG 04/20/2020 11:00:12 NO SIGNIFICANT CHANGES Electronically Signed On 05-10-2022 13:37:46 [employer] CLOCK MECHANIC by Jean Paul Arguelles D.O.
[2022-05-10 14:18] LABS: Basophils Percent Auto 0.2 % (0.2-1.2); Eosinophils Percent Auto 0.2 % (0-4.4); Hematocrit 40.7 % (37.0-47.0); Hemoglobin 12.9 g/dL (12.0-15.0); Immature Granulocyte Absolute 0.02 K/mm3 (0.00-0.031); Immature Granulocyte Percent A 0.3 % (0-0.5); Lymphocytes Absolute Auto 1.94 K/mm3 (0.9-3.2); Lymphocytes Percent Auto 29.3 % (18.3-44.2); Mean Corpuscular HGB Conc 31.7 g/dl (32-36); Mean Corpuscular Hemoglobin 30.3 pg (26-34); Mean Corpuscular Volume 95.5 fl (80-100); Mean Platelet Volume 11.4 fl (7.4-10.4); Monocytes Absolute Auto 0.6 K/mm3 (0.1-0.6); Monocytes Percent Auto 9.4 % (2.6-8.5); Neutrophils Percent Auto 60.6 % (45.5-73.1); Platelet Count Result 205 k/mm3 (150-375); Red Blood Count 4.26 M/mm3 (4.2-5.4); Red Cell Distribution Width 12.8 % (11.5-14.5); White Blood Count 6.6 K/mm3 (4.5-10.0)
== END 2022-05-10 12:57 | disposition home or self-care (01) ==
PROVIDERS: PCP Family Medicine; Visit Provider Obstetrics & Gynecology
DX: N85.2 Hypertrophy of uterus (principal); E78.5 Hyperlipidemia, unspecified; Z01.818 Encounter for other preprocedural examination; R94.31 Abnormal electrocardiogram [ECG] [EKG]
CPT/HCPCS: 36415; 85025; 86850; 86900; 86901; 93005

== ENCOUNTER 2022-05-12 00:49 | Day surgery (SDC) | payer MEDICARE, MEDICAID, SELFPAY ==
[2022-05-03 12:32] VITALS: BMI 43.4
--- NOTE | 2022-05-03 12:41 | PC.NURSE ---
Report to the Outpatient Waiting Room, entrance under the green pavilion located off [facility], at time 6:00 on date 05/12/22. Planned Procedure Time: 7:30. Time changes happen often and if your time is changed the preop area will call you the afternoon before. - You and your visitor will be asked to self-screen and do not enter if you have any COVID symptoms. - Only one visitor is requested with a max of two and NO children visitors are allowed at this time. - The patient visitor may be requested to leave or wait in car when not with patient due to distancing restrictions. - A mask is optional within the hospital at this time. Patients may have clear liquids (water, carbonated beverages, clear teas, apple juice) until 3 hours prior to surgery (4:30) with a maximum of 20 ounces. - No food from midnight until time of surgery Take the following medications with a SIP of water the morning of surgery: INHALERS, LAMICTAL, PROPRANOLOL, OLANZAPINE, GABAPENTIN DO NOT STOP ANY OF YOUR OTHER PRESCRIPTION MEDICATIONS PRIOR TO SURGERY EXCEPT THE FOLLOWING Medications to discontinue per physician: VITAMINS/SUPPLEMENTS Date to take last dose: 05/08/22 Please no make-up, nail bulgarian, hairspray, perfume, deodorant, or body powder the day of surgery. No jewelry (including any body piercings) or valuables the day of surgery, leave them at home. Please take a shower or bath the night before, or the morning of, surgery with an antibacterial soap. Wear comfortable, loose fitting clothing. - Jewelry must be removed prior to entering the operating room. Rings and piercings that are not removed may be cut off. - The hospital will not accept responsibility for valuables. - Please leave all valuables, including medications, at home the day of surgery. If you are going home after surgery, a licensed vibratory pile driver must drive you home. - NO public transportation without another adult if you receive anesthesia. - We recommend that an adult stay with you for 24 hours following discharge. - We also recommend that you do not drive, make important decision, drink alcoholic beverages, or take any drugs that were not prescribed by your health care provider for at least 24 hours after your discharge time. Follow any additional instructions given to you from your surgeon. If you or anyone in your household have experienced Covid symptoms in the past week, please notify your surgeon or the nurse liaison at the phone number below for possible testing. Telephone instructions given to BART RIDDLE and asked if any additional questions and then verbalized understanding. Patient advised to call surgeon office or pre surgery nurse liaison [phone] if any additional questions.
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
[2022-05-12] VITALS (10 sets, daily range): BP systolic 97–136; BP diastolic 58–91; PULSE 53–89; RESP 10–18; TEMP 36.3–37.3; O2SAT 94–100
[2022-05-12] MEDS: ACETAMINOPHEN 500 MG TABLET 1000 MG PO (06:45)
[2022-05-12] MEDS: LACTATED RINGERS 1,000 ML 30 ML IV CONT ×2 (06:58→08:52)
[2022-05-12] MEDS: KETOROLAC 15 MG/ML VIAL (*BKC) IV PUSH (07:02)
--- NOTE | 2022-05-12 07:03 | WPDHPUPDATE1 ---
History and Physical Update Update Date/Time: 05/12/22 07:03 History and Physical has been reviewed, including an updated exam of the patient. There are NO changes in the patient's condition. Risks, benefits, and alternatives have been discussed and questions answered. Patient agrees to proceed with procedure.
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
[2022-05-12] MEDS: SCOPOLAMINE 1.5 MG PATCH TRANSDERM (07:12)
[2022-05-12] MEDS: ceFAZolin 3 GM/D5W 100 ML 100 ML IVPB (07:26)
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
--- NOTE | 2022-05-12 08:48 | PM.DS ---
DS: Admitting Diagnosis Discharge Date 05/13/2022 Admitting Diagnosis pelvic pain and enlarged uterus DS: Discharge Diagnosis Discharge Diagnosis (1) Pelvic pain: Code(s): R10.2 - Pelvic and perineal pain Status: Acute (2) Enlarged uterus: Code(s): N85.2 - Hypertrophy of uterus Status: Acute DS: Summary Hospital Course Reason for hospitalization: patient was admitted for robotic total vaginal hysterectomy and bilateral salpingectomy which she undertook on 05/12/2022 Hospital Course: her 24hour course was unremarkable. She remained afebrile. She was up, voiding without difficulty, ambulating, general without complaints. Time Spent with Patient Time attestation: Total time spent providing and/or coordinating discharge services: Exam Const: General: cooperative, healthy appearing and comfortable Nutritional Appearance: overweight Orientation/consciousness: oriented to person, oriented to place and oriented to time HENMT: Head: normal to inspection Resp: Effort & Inspection: normal respiratory effort Cardio: Rate: regular rate Rhythm: regular rhythm Heart sounds: S1 normal heart sound present and S2 normal heart sound present GI: Inspection: normal to inspection and incision ( Wounds clean drain intact) DS: Data Data Completed and Pending Pending studies at discharge: Pending at discharge 05/12/22 08:28 Surgical [PTH] Routine Discharge Plan Discharge Patient Disposition: Home, Self-Care Stand Alone Forms: General Discharge Instructions Follow-up/Referrals: Talat Malloy MD [Physician] - Discharge Medications: New hydrocodone-acetaminophen 5-325 mg tablet 1 tablet PO Q4H PRN (Reason: pain) Qty: 30 0RF No Action melatonin 3 mg Tablet 3 mg PO HS omeprazole 40 mg Capsule,Delayed Release(Dr/Ec) 40 mg PO BID prazosin 1 mg capsule 1 mg PO DAILY levothyroxine 100 mcg tablet 100 mcg PO DAILY propranolol 20 mg tablet 40 mg PO BID Bevespi Aerosphere 9-4.8 mcg HFA aerosol inhaler 2 puff INHALATION BID levalbuterol tartrate [Xopenex HFA] 45 mcg/actuation HFA aerosol inhaler 2 puff INHALATION PRN PRN (Reason: SOB) cholecalciferol (vitamin D3) [Vitamin D3] 50 mcg (2,000 unit) Tablet 50 mcg PO DAILY lamotrigine [Lamictal] 150 mg Tablet 150 mg PO DAILY doxepin 50 mg Capsule 50 mg PO HS atorvastatin 20 mg Tablet 20 mg PO DAILY olanzapine 5 mg Tablet 5 mg PO TID gabapentin 300 mg Capsule 300 mg PO TID prazosin 2 mg Capsule 2 mg PO HS levomefolate calcium [L-Methylfolate] 15 mg Tablet 15 mg PO DAILY Caplyta 42 mg Capsule 42 mg PO HS pyridoxine (vitamin B6) 50 mg Tablet 50 mg PO DAILY mecobalamin (vitamin B12) 500 mcg Tablet,Chewable 1,000 mcg PO DAILY
[2022-05-12] MEDS: ONDANSETRON INJ 4 MG/2 ML VIAL IV PUSH (09:09)
[2022-05-12] MEDS: fentaNYL CITRATE INJ (*CRX) 100 MCG/2 ML VIAL 25 MCG IV PUSH ×4 (09:16→09:43)
--- NOTE | 2022-05-12 10:15 | PC.NURSE ---
This patient, Brittney Mercado, was received from PACU on 05/12/22 at 1015. Patient oriented to unit policies and routines.
[2022-05-12] MEDS: DEXTROSE 5%/LACTATED RINGERS 1,000 ML 125 ML IV CONT (10:32)
[2022-05-12] MEDS: DOCUSATE SODIUM 100 MG CAPSULE PO ×2 (10:32→17:25)
[2022-05-12] MEDS: KETOROLAC 30 MG/ML VIAL (*BKC) IV PUSH ×2 (10:33→17:26)
[2022-05-12] MEDS: ENOXAPARIN 40 MG/0.4 ML SYRINGE SUB-Q (10:33)
[2022-05-12] MEDS: HYDROcodone/acetaminophen (*CRX) 10-325 MG TABLET 1 TAB PO ×3 (14:07→21:50)
[2022-05-12] MEDS: SIMETHICONE 80 MG TAB.CHEW PO (14:07)
[2022-05-12] MEDS: PANTOPRAZOLE 40 MG TABLET PO (21:47)
[2022-05-12] MEDS: lamoTRIgine 100 MG, lamoTRIgine 50 MG 150 MG PO (21:48)
[2022-05-12] MEDS: DOXYCYCLINE HYCLATE 50 MG CAPSULE PO (21:48)
[2022-05-12] MEDS: ARIPiprazole 5 MG TABLET PO (21:49)
[2022-05-12] MEDS: OLANZapine 5 MG TABLET PO (21:49)
[2022-05-12] MEDS: GABAPENTIN 300 MG CAPSULE 600 MG PO (21:50)
[2022-05-13] MEDS: HYDROcodone/acetaminophen (*CRX) 5-325 MG TABLET 1 TAB PO ×2 (02:07→06:53)
[2022-05-13] MEDS: diphenhydrAMINE HCl CAP 25 MG CAPSULE PO ×2 (02:07→06:54)
[2022-05-13 04:30] VITALS: BP 131/77; PULSE 66; RESP 18; TEMP 36.8; O2SAT 100
[2022-05-13] MEDS: IBUPROFEN 600 MG TABLET PO (04:49)
[2022-05-13 05:21] LABS: Basophils Percent Auto 0.3 % (0.2-1.2); Eosinophils Percent Auto 0.2 % (0-4.4); Hematocrit 36.8 % (37.0-47.0); Hemoglobin 11.9 g/dL (12.0-15.0); Immature Granulocyte Absolute 0.02 K/mm3 (0.00-0.031); Immature Granulocyte Percent A 0.3 % (0-0.5); Lymphocytes Absolute Auto 1.88 K/mm3 (0.9-3.2); Lymphocytes Percent Auto 28.7 % (18.3-44.2); Mean Corpuscular HGB Conc 32.3 g/dl (32-36); Mean Corpuscular Hemoglobin 30.3 pg (26-34); Mean Corpuscular Volume 93.6 fl (80-100); Mean Platelet Volume 11.1 fl (7.4-10.4); Monocytes Absolute Auto 0.6 K/mm3 (0.1-0.6); Monocytes Percent Auto 9.5 % (2.6-8.5); Platelet Count Result 181 k/mm3 (150-375); Red Blood Count 3.93 M/mm3 (4.2-5.4); Red Cell Distribution Width 12.6 % (11.5-14.5); White Blood Count 6.6 K/mm3 (4.5-10.0)
[2022-05-13] MEDS: LEVOTHYROXINE SODIUM 100 MCG TABLET PO (06:51)
[2022-05-13 07:00] VITALS: BP 129/78; PULSE 70; RESP 16; TEMP 36.8; O2SAT 98
--- NOTE | 2022-05-13 07:59 | P.PNAN_ITS ---
Anes - Prog Note Post-Op Date/Time: 05/13/22 07:59 Cardiovascular status: normal Respiratory status: normal Airway patency: baseline Mental status: baseline Post-Op hydration status: normal Vital Signs: Last Vital Signs Temp 36.8 C 05/13/22 07:00 Pulse 70 05/13/22 07:00 Resp 16 05/13/22 07:00 BP 129/78 05/13/22 07:00 Pulse Ox 98 05/13/22 07:00 O2 Del Method Room Air 05/13/22 07:00 O2 Flow Rate 8 05/12/22 09:10 Pain Score (VAS): 2 I/O: Intake & Output 05/12/22 05/12/22 05/13/22 15:59 23:59 07:59 Intake Total 2720 1720 Output Total 1800 900 Balance 920 820 Laboratory Tests 05/13/22 04:42 05/13/22 04:42 WBC 6.6 RBC 3.93 L Hgb 11.9 L Hct 36.8 L MCV 93.6 MCH 30.3 MCHC 32.3 RDW 12.6 Plt Count 181 MPV 11.1 H Immature Gran % (Auto) 0.3 Neut % (Auto) 61.0 Lymph % (Auto) 28.7 [place] % (Auto) 9.5 H Eos % (Auto) 0.2 Baso % (Auto) 0.3 Lymph # (Auto) 1.88 [place] # (Auto) 0.6 Eos # (Auto) 0.0 Baso # (Auto) 0.0 Abs Immat Gran (auto) 0.02 Absolute Neuts (auto) 4.0 Absolute Nucleated RBC 0.0 Nucleated RBC % 0.0 Post-procedural complaints: none Patient Feedback: Patient satisfied with anesthetic care.
[2022-05-13] MEDS: ENOXAPARIN 40 MG/0.4 ML SYRINGE SUB-Q (08:40)
[2022-05-13] MEDS: DOCUSATE SODIUM 100 MG CAPSULE PO (08:40)
[2022-05-13] MEDS: GABAPENTIN 300 MG CAPSULE 600 MG PO (08:41)
[2022-05-13] MEDS: lamoTRIgine 100 MG, lamoTRIgine 50 MG 150 MG PO (08:42)
[2022-05-13] MEDS: PANTOPRAZOLE 40 MG TABLET PO (08:43)
[2022-05-13] MEDS: OLANZapine 5 MG TABLET PO (08:43)
--- NOTE | 2022-05-13 10:51 | PM.GYNPNOP ---
VFX ARTIST - A/P Assessment and plan (1) Pelvic pain: Code(s): R10.2 - Pelvic and perineal pain Status: Acute Assessment and Plan: A: POD#1, s/p robotic assited TVHBS, doing well. P: Home to f/u 2 weeks in the office. (2) Enlarged uterus: Code(s): N85.2 - Hypertrophy of uterus Status: Acute Postoperative Procedures: Procedures Operation Date: 05/12/22 07:30 Actual Procedure Side Surgeon p Robotic Assisted Total Vaginal Hysterectomy with Bilateral Salpingectomy Bilateral Talat Bennett MD Postoperative day: 1 Time Spent With Patient Time: Total time spent is greater than 50% in coordination of care (as documented) at patient's floor/unit and/or counseling patient: Time with patient: less than 15 minutes VFX ARTIST- PN:Subj Post-Op Subjective Date/time seen: 05/13/22 10:51 Interval history: Pain OK. Tolerating diet. Voiding. Says Marty makes her itchy. Would like to go home. Exam Narrative: AVSS I/O OK ABD soft, nontender. Incisions c/d/i. EXT nontender VFX ARTIST - PN: Obj Data Vital Signs Vital Signs: Vital Signs - 24 hr 05/12/22 13:20 05/12/22 17:30 05/12/22 19:35 Temperature 37.3 C 36.7 C 36.8 C Pulse Rate 89 67 68 Respiratory Rate 18 18 18 Blood Pressure 136/58 L 124/74 130/82 Pulse Oximetry 100 97 98 Oxygen Delivery 05/13/22 04:30 05/13/22 07:00 05/13/22 07:00 Temperature 36.8 C 36.8 C Pulse Rate 66 70 70 Respiratory Rate 18 16 16 Blood Pressure 131/77 129/78 Pulse Oximetry 100 98 98 Oxygen Delivery Room Air Intake/Output Intake/Output: Intake & Output 05/10/22 05/11/22 05/12/22 05/13/22 23:59 23:59 23:59 23:59 Intake Total 4540 Output Total 2700 Balance 1840 Meds/Results Medications: Active Medications Generic Name Dose Route Start Last Admin Trade Name Freq PRN Reason Stop Dose Admin Aripiprazole 5 mg 05/12/22 21:00 05/12/22 21:49 Aripiprazole 5 Mg Tablet PO 5 mg HS SHELIA Administration Diphenhydramine HCl 25 mg 05/12/22 19:24 05/13/22 06:54 Diphenhydramine Hcl Cap 25 Mg Capsule PO 25 mg Q4HR PRN Administration Itching Docusate Sodium 100 mg 05/12/22 10:02 05/13/22 08:40 Docusate Sodium 100 Mg Capsule PO 100 mg BID SHELIA Administration Doxycycline Hyclate 50 mg 05/12/22 21:00 05/12/22 21:48 Doxycycline Hyclate 50 Mg Capsule PO 50 mg HS SHELIA Administration Enoxaparin Sodium 40 mg 05/12/22 10:02 05/13/22 08:40 Enoxaparin 40 Mg/0.4 Ml Syringe SUB-Q 40 mg DAILY SHELIA Administration Gabapentin 600 mg 05/12/22 21:00 05/13/22 08:41 Gabapentin 300 Mg Capsule PO 600 mg TID SHELIA Administration Ibuprofen 600 mg 05/12/22 10:02 05/13/22 04:49 Ibuprofen 600 Mg Tablet PO 600 mg Q6H PRN Administration Cramping Ketorolac Tromethamine 30 mg 05/12/22 10:02 05/12/22 17:26 Ketorolac 30 Mg/Ml Vial (*[facility]) IV PUSH 05/17/22 10:01 30 mg Q6H PRN Administration Pain Rated 4-6 Lamotrigine 100 mg/ 150 mg 05/12/22 21:00 05/13/22 08:42 Lamotrigine 50 mg PO 150 mg Q12HR SHELIA Administration Levothyroxine Sodium 100 mcg 05/13/22 06:30 05/13/22 06:51 Levothyroxine Sodium 100 Mcg Tablet PO 100 mcg DAILY@0630 SHELIA Administration Naloxone HCl 0.1 mg 05/12/22 10:02 Naloxone Hcl 0.4 Mg/Ml Vial IV PUSH Q2M PRN Respiratory rate less than 10 Olanzapine 5 mg 05/12/22 21:00 05/13/22 08:43 Olanzapine 5 Mg Tablet PO 5 mg TID SHELIA Administration Ondansetron HCl 4 mg 05/12/22 10:02 Ondansetron Inj 4 Mg/2 Ml Vial IV PUSH Q6H PRN Nausea And Vomiting Pantoprazole Sodium 40 mg 05/12/22 21:00 05/13/22 08:43 Pantoprazole 40 Mg Tablet PO 40 mg Q12HR SHELIA Administration Simethicone 80 mg 05/12/22 10:02 05/12/22 14:07 Simethicone 80 Mg Tab.Chew PO 80 mg Q2H PRN Administration Gas Labs 05/13/22 04:42 Labs: Laboratory Results - last 24 hr 05/13/22
--- NOTE | 2022-05-13 10:55 | P.DS_ITS ---
DS: Admitting Diagnosis Discharge Date 05/12/22 Admitting Diagnosis Enlarged uterus Pelvic pain DS: Discharge Diagnosis Discharge Diagnosis (1) Pelvic pain: Code(s): R10.2 - Pelvic and perineal pain Status: Acute (2) Enlarged uterus: Code(s): N85.2 - Hypertrophy of uterus Status: Acute DS: Summary Hospital Course Hospital Course: Admitted on the date of scheduled surgery. Underwent robotic assisted TVHBS. Did well and was able to go home on POD1. Time Spent with Patient Time attestation: Total time spent providing and/or coordinating discharge services: DS: Data Data Completed and Pending Pending studies at discharge: Pending at discharge 05/12/22 08:28 Surgical [PTH] Routine Labs on day of discharge: Labs from last 24 hours 05/13/22 04:42 WBC 6.6 RBC 3.93 L Hgb 11.9 L Hct 36.8 L MCV 93.6 MCH 30.3 MCHC 32.3 RDW 12.6 Plt Count 181 MPV 11.1 H Immature Gran % (Auto) 0.3 Neut % (Auto) 61.0 Lymph % (Auto) 28.7 [place] % (Auto) 9.5 H Eos % (Auto) 0.2 Baso % (Auto) 0.3 Lymph # (Auto) 1.88 [place] # (Auto) 0.6 Eos # (Auto) 0.0 Baso # (Auto) 0.0 Abs Immat Gran (auto) 0.02 Absolute Neuts (auto) 4.0 Absolute Nucleated RBC 0.0 Nucleated RBC % 0.0 Discharge Plan Discharge Patient Disposition: Home, Self-Care Discharge Instructions: Call or return if temperature above 100.4? F, increased abdominal pain, increased vaginal bleeding or any new problems. Nothing in the vagina for six weeks. Stand Alone Forms: General Discharge Instructions Follow-up/Referrals: Talat Malloy MD [Physician] - Discharge Medications: New hydrocodone-acetaminophen 5-325 mg tablet 1 tablet PO Q4H PRN (Reason: pain) Qty: 30 0RF oxycodone-acetaminophen [Percocet] 5-325 mg tablet 1 - 2 tablet PO Q6H PRN (Reason: pain) Qty: 30 0RF Continued melatonin 3 mg Tablet 3 mg PO HS omeprazole 40 mg Capsule,Delayed Release(Dr/Ec) 40 mg PO Q12H prazosin 1 mg capsule 1 mg PO DAILY levothyroxine 100 mcg tablet 100 mcg PO DAILY propranolol 20 mg tablet 40 mg PO BID Bevespi Aerosphere 9-4.8 mcg HFA aerosol inhaler 2 puff INHALATION BID levalbuterol tartrate [Xopenex HFA] 45 mcg/actuation HFA aerosol inhaler 2 puff INHALATION PRN PRN (Reason: SOB) cholecalciferol (vitamin D3) [Vitamin D3] 50 mcg (2,000 unit) Tablet 50 mcg PO DAILY lamotrigine [Lamictal] 150 mg Tablet 150 mg PO Q12H doxepin 50 mg Capsule 50 mg PO HS atorvastatin 20 mg Tablet 20 mg PO DAILY olanzapine 5 mg Tablet 5 mg PO Q8H gabapentin 300 mg Capsule 600 mg PO Q8H prazosin 2 mg Capsule 2 mg PO HS levomefolate calcium [L-Methylfolate] 15 mg Tablet 15 mg PO DAILY Caplyta 42 mg Capsule 42 mg PO HS pyridoxine (vitamin B6) 50 mg Tablet 50 mg PO DAILY mecobalamin (vitamin B12) 500 mcg Tablet,Chewable 1,000 mcg PO DAILY aripiprazole [Abilify] 5 mg tablet 5 mg HS
== END 2022-05-13 11:50 | disposition home or self-care (01) ==
LOC: ANHSURGERY 07:03 → ANHOB2 10:21
PROVIDERS: PCP Family Medicine; Visit Provider Obstetrics & Gynecology
PROC: (CPT 58571; principal; 2022-05-12 07:30)
DX: N93.9 Abnormal uterine and vaginal bleeding, unspecified (principal); N80.00 Endometriosis of the uterus, unspecified; N72 Inflammatory disease of cervix uteri; N83.8 Other noninflammatory disorders of ovary, fallopian tube and broad ligament; R10.2 Pelvic and perineal pain; J44.9 Chronic obstructive pulmonary disease, unspecified; E03.9 Hypothyroidism, unspecified; K21.9 Gastro-esophageal reflux disease without esophagitis; F43.10 Post-traumatic stress disorder, unspecified; E66.01 Morbid (severe) obesity due to excess calories; Z68.41 Body mass index [BMI] 40.0-44.9, adult; Z79.51 Long term (current) use of inhaled steroids; Z87.891 Personal history of nicotine dependence
CPT/HCPCS: 58571; S2900; 36415; 85025; 86850; 86900; 86901; 88307; 93005; 99199; A9270; J0690; J1170; J1650; J1885; J2250; J2370; J2405; J2704; J3010; J7030; J7120; J7121